=== PATIENT | male | born 1950 | race Hispanic/Latino ===

== ENCOUNTER 2023-07-25 20:14 | Emergency (ER) | payer OTHER ==
[~2023-07-25] VITALS: Ht 172.7 cm; Wt 82.6 kg
[2023-07-26] MEDS: ACETAMINOPHEN 325 MG TAB PO ONE (01:54)
[2023-07-26 01:56] VITALS: BP 150/72; PULSE 70; RESP 18; O2SAT 98
== END 2023-07-26 03:16 | disposition left against medical advice (07) ==
LOC: EDH 20:14
DX: M25.521 Pain in right elbow (principal); E11.9 Type 2 diabetes mellitus without complications; V89.2XXA Person injured in unspecified motor-vehicle accident, traffic, initial encounter; Y93.I9 Activity, other involving external motion; Y92.488 Other paved roadways as the place of occurrence of the external cause; Y99.8 Other external cause status
CPT/HCPCS: 70450; 72125; 73070